=== PATIENT | male | born 1990 | race Caucasian/White ===

== ENCOUNTER 2016-07-21 11:00 | Outpatient (CLI) | payer OTHER ==
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
== END 2016-07-21 11:01 | disposition home or self-care (01) ==
LOC: DI 11:00
PROVIDERS: ATTEND Orthopaedic Surgery
DX: M25.572 Pain in left ankle and joints of left foot (principal)

== ENCOUNTER 2017-05-03 07:14 | Emergency (ER) | payer OTHER ==
[2017-05-03] MEDS ORDERED: MORPHINE 2 MG/ML CARPUJECT IVP STA ×2 (07:32→08:34)
[2017-05-03] MEDS ORDERED: ONDANSETRON 4 MG/2 ML VIAL IVP STA (07:32)
[2017-05-03] MEDS ORDERED: SODIUM CHLORIDE 0.9% 1,000 ML IV ONE (07:32)
--- NOTE | 2017-05-03 07:35 | ED Physician Documentation ---
History of Present Illness - Stated complaint Stated Complaint: UPPER ABD PX - Chief complaint Chief Complaint: Abd Pain - Additonal information Additional information: hx from pt 26 y/o male healthy EMS s/p appy 3 days of upper abd pain and NV no diarrhea no blood in vomit or stool no fever no rad to back or shoulders no hx same has had gastritis/GERD before and this feels different Review of Systems Constitutional: denies: Fever, Chills Cardiac: denies: Chest pain / pressure Respiratory: denies: Dyspnea GI: reports: Abdominal Pain, Nausea, Vomiting. denies: Diarrhea, Hematemesis, Bloody / black stool : denies: Dysuria Endocrine: denies: Easy bruising / bleeding Immunocompromised: denies: Immunocompromised PD PAST MEDICAL HISTORY - Past Medical History Past Medical History: No - Past Surgical History General: Appendectomy - Present Medications Home Medications: Ambulatory Orders Medication Instructions Recorded Confirmed Sucralfate 1 gm PO ACHS #120 tablet 05/03/17 raNITIdine [Zantac] 150 mg PO BID #60 tablet 05/03/17 - Allergies Allergies/Adverse Reactions: Allergies Allergy/AdvReac Type Severity Reaction Status Date / Time No Known Drug Allergies Allergy Verified 05/03/17 07:20 - Social History Does the pt smoke?: No Smoking Status: Never smoker Does the pt drink ETOH?: Yes Does the pt have substance abuse?: No PD ED PE NORMAL - Vitals Vital signs reviewed: Yes - General General: Alert and oriented X 3 - HEENT HEENT: PERRL - Neck Neck: Supple, no meningeal sign - Cardiac Cardiac: RRR - Respiratory Respiratory: No respiratory distress, Clear bilaterally - Abdomen Abdomen: Other (+BS + guarding and peritoneal findings, no focal RUQ pain or [place], less tender lower abd but still with guarding) - Derm Derm: Normal color - Neuro Neuro: Alert and oriented X 3 Results - Vitals Vitals: Vital Signs - 24 hr 05/03/17 05/03/17 05/03/17 07:19 08:25 09:53 Temperature 37.0 C Heart Rate 76 62 60 Respiratory 18 18 16 Rate Blood Pressure 154/110 H 149/96 H 137/93 H O2 Saturation 98 99 100 Oxygen O2 Source Room air - Labs Labs: Laboratory Tests 05/03/17 05/03/17 05/03/17 07:30 07:30 08:00 WBC 7.4 RBC 5.83 Hgb 16.3 Hct 48.6 MCV 83.4 MCH 28.0 MCHC 33.6 RDW 13.9 Plt Count 223 MPV 8.3 Neut # 4.3 Lymph # 2.2 [place] # 0.6 Eos # 0.2 Baso # 0.1 Absolute Nucleated RBC 0.00 Nucleated RBC % 0.0 Sodium 137 Potassium 4.3 Chloride 101 Carbon Dioxide 25 Anion Gap 11.0 BUN 15 Creatinine 1.1 Estimated GFR (MDRD) 80 L Glucose 105 H Calcium 9.1 Total Bilirubin 1.2 H AST 21 ALT 29 Alkaline Phosphatase 63 Total Protein 7.4 Albumin 4.7 Globulin 2.7 Albumin/Globulin Ratio 1.7 Lipase 117 H Urine Color YELLOW Urine Clarity CLEAR Urine pH 6.5 Ur Specific [place] 1.020 Urine Protein NEGATIVE Urine Glucose (UA) NEGATIVE Urine Ketones NEGATIVE Urine Occult Blood NEGATIVE Urine Nitrite NEGATIVE Urine Bilirubin NEGATIVE Urine Urobilinogen 0.2 (NORMAL) Ur Leukocyte Esterase NEGATIVE Ur Microscopic Review NOT INDICATED Urine Culture Comments NOT INDICATED - Rads (name of study) CT AP with contrast Radiology: See rad report (no acute process) RUQ sono Radiology: See rad report (no acute process) PD MEDICAL DECISION MAKING - ED course ED course: despite concerning exam, imaging is reassuring lipase is a bit elevated but no gallstones and pt denies ETOH - perhaps has severe gastritis with some local inflammation/irritation of adjacent pancreas feeling better after meds in ED feel safe to dc home with GI meds, clear liquid diet for two days, fup PMD Sunday for recheck lipase Departure - Departure Disposition: Home, Self Care Clinical Impression: Gastritis Qualifiers: Gastritis type: unspecified gastritis Chronicity: acute Gastritis bleeding: without bleeding Qualified Code(s): K29.00 - Acute gastritis without bleeding Pancreatitis Qualifiers: Chronicity: acute Pancreatitis type: unspecified pancreatitis type Acute pancreatitis complication: no infection or necrosis Qualified Code(s): K85.90 - Acute pancreatitis without necrosis or infection, unspecified Condition: Good Instructions: ED Diet Clear Liquid, ED Pancreatitis, ED PUD Vs Gastritis Follow-Up: BENY ROMERO [Primary Care Provider] - Prescriptions: raNITIdine [Zantac] 150 mg PO BID #60 tablet Sucralfate 1 gm PO ACHS #120 tablet Comments: The CT scan and ultrasound do not show any perforation, aneurysm, internal bleeding, kidney or gallbladder stones The labs suggest some pancreas inflammation - but the usual causes of pancreatitis are gallstones and heavy alcohol consumption - perhaps you have some gastritis or ulcer disease and that is causing inflammation of the adjacent pancreas. In any case, given he reassuring imaging and the fact you are feeling better, I think it is safe for you to go home for now. I recommend medication for gastritis/ulcers and that you be on a clear liquid diet for the next 2 days to rest your pancreas. Please follow up with your PMD for a recheck exam and to have the pancreas labs rechecked as well. Of course, if you are worse over the weekend, return to the ER right away Forms: Activity restrictions Discharge Date/Time: 05/03/17 11:15
[2017-05-03 07:37] LABS: BASOPHILS # (AUTO) 0.1 10^3/uL (0.0-0.1); BASOPHILS % (AUTO) 0.7 %; EOSINOPHILS # (AUTO) 0.2 10^3/uL (0.0-0.7); EOSINOPHILS % (AUTO) 2.8 %; HGB - HEMOGLOBIN 16.3 g/dL (14.0-18.0); LYMPHOCYTES # (AUTO) 2.2 10^3/uL (1.5-3.5); LYMPHOCYTES % (AUTO) 29.8 %; MEAN CORPUSCULAR HGB CONC 33.6 g/dL (32.0-36.0); MEAN CORPUSCULAR VOLUME 83.4 fL (80.0-94.0); MEAN PLATELET VOLUME 8.3 fL (7.4-11.4); MONOCYTES # (AUTO) 0.6 10^3/uL (0.0-1.0); NEUTROPHILS # (AUTO) 4.3 10^3/uL (1.5-6.6); NEUTROPHILS % (AUTO) 58.7 %; PLT - PLATELET COUNT 223 10^3/uL (130-450); RED BLOOD COUNT 5.83 10^6/uL (4.70-6.10); RED CELL DISTRIBUTION WIDTH 13.9 % (12.0-15.0); WHITE BLOOD COUNT 7.4 x10^3/uL (4.8-10.8)
[2017-05-03] MEDS ORDERED: IOPAMIDOL-300 100 ML VIAL ONE (07:47)
[2017-05-03 07:54] LABS: ALBUMIN 4.7 g/dL (3.2-5.5); ALBUMIN/GLOBULIN RATIO 1.7 (1.0-2.2); BILIRUBIN,TOTAL 1.2 mg/dL (0.2-1.0); CALCIUM 9.1 mg/dL (8.5-10.3); CREATININE 1.1 mg/dL (0.6-1.2); TOTAL PROTEIN 7.4 g/dL (6.7-8.2)
[2017-05-03] MEDS ORDERED: IOPAMIDOL-300 100 ML VIAL IVP ONE (07:57)
--- NOTE | 2017-05-03 08:26 | CT Report ---
EXAM: CT ABDOMEN AND PELVIS EXAM DATE: 05/03/2017 08:08 AM. CLINICAL HISTORY: Severe upper abd pain, peritoneal. COMPARISONS: None. TECHNIQUE: Routine helical CT imaging was performed through the abdomen and pelvis. IV contrast: 100M L ISOVUE 300. Enteric contrast: No. Reconstructions: Coronal and sagittal. In accordance with CT protocol optimization, one or more of the following dose reduction techniques w ere utilized for this exam: automated exposure control, adjustment of mA and/or KV based on patient s ize, or use of iterative reconstructive technique. FINDINGS: Lung Bases: Unremarkable. Liver: Normal. No masses. Gallbladder/Bile Ducts: Unremarkable by CT technique. Spleen: Normal. Pancreas: Normal. Adrenal Glands: Normal. Kidneys: Normal. No masses or hydronephrosis. Peritoneal Cavity/Bowel: No free fluid, free air or pathologic adenopathy. [place] lymph nodes are pr esent, for example series 3 image 56 right anterior abdomen. No masses or acute inflammatory process. Moderate amount of fecal material throughout the colon. Pelvic Organs: The bladder and pelvic organs are within normal limits. Vasculature: No aneurysms or other significant abnormality. Bones: No significant abnormality. Other: No acute findings noted. IMPRESSION: Negative abdomen and pelvis CT noting a moderate amount of fecal material throughout the colon. If clinical concern is for gallbladder pathology, ultrasound may be useful. [facility] Referring Provider Line: [phone] SITE ID: [id number]
[2017-05-03 09:05] LABS: BILIRUBIN,URINE NEGATIVE (NEGATIVE); GLUCOSE, URINE (UA) NEGATIVE (NEGATIVE); KETONES,URINE (UA) NEGATIVE (NEGATIVE); LEUKOCYTE ESTERASE, URINE NEGATIVE (NEGATIVE); NITRITE,URINE NEGATIVE (NEGATIVE); OCCULT BLOOD,URINE NEGATIVE (NEGATIVE); PH,URINE 6.5 PH (5.0-7.5); PROTEIN,URINE NEGATIVE (NEGATIVE); UROBILINOGEN,URINE 0.2 (NORMAL) E.U./dL (NORMAL)
[2017-05-03 09:06] LABS: CLARITY,URINE CLEAR (CLEAR)
[2017-05-03] MEDS ORDERED: FAMOTIDINE 20 MG/50 ML 50 ML IV ONE (09:34)
[2017-05-03] MEDS ORDERED: LIDOCAINE VISCOUS 2% 15 ML UDC MM STA (09:34)
[2017-05-03] MEDS ORDERED: MAG HYDROX/AL HYDROX/SIMETH 30 ML UDC PO STA (09:34)
[2017-05-03 09:57] VITALS: BP 137/93
--- NOTE | 2017-05-03 11:39 | Ultrasound Report ---
RIGHT UPPER QUADRANT ULTRASOUND: 05/03/2017 CLINICAL INDICATION: Upper abdominal pain. TECHNIQUE: Real-time scanning was performed with union contract representative static images obtained. FINDINGS: The liver measures 15.6 cm. Hepatic echogenicity is normal. No intrahepatic biliary dilatation or focal parenchymal lesion is present. The common bile duct measures 3 mm. The gallbladder is normal. The right kidney measures 10.1 cm, and demonstrates no hydronephrosis. No free fluid is present. IMPRESSION: NORMAL RIGHT UPPER QUADRANT ULTRASOUND. TD: 05/03/2017 11:38
== END 2017-05-03 11:15 | disposition home or self-care (01) ==
LOC: ED 07:14
DX: K29.00 Acute gastritis without bleeding (principal); K85.90 Acute pancreatitis without necrosis or infection, unspecified
CPT/HCPCS: 36415; 74177; 76705; 80053; 81003; 83690; 85025; 96361; 96365; 96375; 96376; 99283; 99284; A9270; Q9967; 81001; 87086

== ENCOUNTER 2017-05-24 10:39 | Outpatient (CLI) | payer OTHER | END 2017-05-24 10:40 | disposition home or self-care (01) | LOC: SC 10:39 | PROVIDERS: ATTEND Nurse Practitioner Family | DX: G47.30 Sleep apnea, unspecified (principal); G47.10 Hypersomnia, unspecified; R06.83 Snoring; G47.8 Other sleep disorders | CPT/HCPCS: 99204; 99212 ==

== ENCOUNTER 2019-07-25 17:41 | Emergency (ER) | payer BC, OTHER ==
[2019-07-25 17:53] VITALS: BP 153/100
[2019-07-25] MEDS ORDERED: HYDROcod/ACETAM 5/325 MG TABLET PO STA (18:03)
--- NOTE | 2019-07-25 18:04 | ED Physician Documentation ---
PD HPI LOWER EXT INJURY - Stated complaint Stated Complaint: RT FOOT INJ - Chief complaint Chief Complaint: Ext Problem - History obtained from History obtained from: Patient (Large farm implements crushed his foot just prior to arrival. He has pain at the first metatarsal he is unable to walk.) Review of Systems Constitutional: reports: Reviewed and negative Throat: reports: Reviewed and negative Cardiac: reports: Reviewed and negative PD PAST MEDICAL HISTORY - Past Medical History Past Medical History: No - Past Surgical History General: Appendectomy - Present Medications Home Medications: Ambulatory Orders Medication Instructions Recorded Confirmed Sucralfate 1 gm PO ACHS #120 tablet 05/03/17 raNITIdine [Zantac] 150 mg PO BID #60 tablet 05/03/17 Hydrocodone/Acetaminophen 1 - 2 each PO Q6H PRN #14 tablet 07/25/19 [Hydrocodon-Acetaminophen 5-325] - Allergies Allergies/Adverse Reactions: Allergies Allergy/AdvReac Type Severity Reaction Status Date / Time No Known Drug Allergies Allergy Verified 07/25/19 17:52 - Social History Does the pt smoke?: No Smoking Status: Never smoker Does the pt drink ETOH?: Yes Does the pt have substance abuse?: No PD ED PE NORMAL - Vitals Vital signs reviewed: Yes - General General: Alert and oriented X 3, No acute distress - HEENT HEENT: PERRL, EOMI - Extremities Extremities: Other (There is an abrasion that is shallow and tenderness over the first metatarsal of the right foot dorsally. No pain with movement of any of the toes.) - Neuro Neuro: Alert and oriented X 3, Normal speech Results - Vitals Vitals: Vital Signs - 24 hr 07/25/19 17:48 Temperature 37.1 C Heart Rate 90 Respiratory 16 Rate Blood Pressure 153/100 H O2 Saturation 96 Oxygen O2 Source Room air - Rads (name of study) Three-view right foot Radiology: EMP read contemporaneously (Normal) Departure - Departure Disposition: 01 Home, Self Care Clinical Impression: Crush injury of right foot Qualifiers: Encounter type: initial encounter Qualified Code(s): S97.81XA - Crushing injury of right foot, initial encounter Condition: Good Record reviewed to determine appropriate education?: Yes Instructions: ED Crush Injury Foot Toe No Fx Ch Prescriptions: Hydrocodone/Acetaminophen [Hydrocodon-Acetaminophen 5-325] 1 - 2 each PO Q6H PRN #14 tablet PRN Reason: pain Comments: Recheck with your doctor in a week if not better, return for new or worsening symptoms. Is okay to start walking and bearing weight as tolerated when you can. Forms: Activity restrictions
--- NOTE | 2019-07-25 18:57 | XRAY Report ---
Reason: foot inj Procedure Date: 07/25/2019 Accession Number: [id number] / [id number] Procedure: XR - Foot 3 View RT CPT Code: Final Report FULL RESULT: EXAM: RIGHT FOOT RADIOGRAPHY EXAM DATE: 07/25/2019 06:27 PM. CLINICAL HISTORY: Crush injury. Foot pain. COMPARISON: None. TECHNIQUE: 3 views. FINDINGS: Bones: Normal. No fractures or bone lesions. Joints: Normal. No subluxations. Soft Tissues: Unremarkable. IMPRESSION: Normal foot radiography. [facility]
== END 2019-07-25 19:11 | disposition home or self-care (01) ==
LOC: ED 17:41
DX: S97.81XA Crushing injury of right foot, initial encounter (principal); W20.8XXA Other cause of strike by thrown, projected or falling object, initial encounter
CPT/HCPCS: 73630; 99283; A9270

== ENCOUNTER 2020-01-14 10:30 | Emergency (ER) | payer OTHER, BC ==
--- NOTE | 2020-01-14 11:43 | XRAY Report ---
PROCEDURE: Shoulder 3 View LT INDICATIONS: left shoulder inj TECHNIQUE: 3 views of the shoulder were acquired. COMPARISON: None. FINDINGS: Bones: No fractures or dislocations. No suspicious bony lesions. Visualized ribs appear intact. C oracoclavicular and acromioclavicular intervals are within normal limits. Soft tissues: No suspicious soft tissue calcifications. IMPRESSION: Left shoulder without radiographic abnormalities. Reviewed by: Daniel Cortez MD on 01/14/2020 10:[address] [facility] Approved by: Daniel Cortez MD on 01/14/2020 10:[address] [facility] Station ID: [id number]
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
[2020-01-14 12:27] VITALS: BP 123/88
== END 2020-01-14 13:05 | disposition home or self-care (01) ==
LOC: ED 10:30
DX: S43.92XA Sprain of unspecified parts of left shoulder girdle, initial encounter (principal); X50.9XXA Other and unspecified overexertion or strenuous movements or postures, initial encounter; Y93.89 Activity, other specified; Y99.0 Civilian activity done for income or pay
CPT/HCPCS: 99283